=== PATIENT | male | born 1955 | race Caucasian/White ===

== ENCOUNTER 2019-04-28 09:42 | Emergency (ER) | payer OTHER ==
[2019-04-28] MEDS ORDERED: traMADol 50 MG Tab ONE (10:50)
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
--- NOTE | 2019-04-29 05:27 | CR ---
DATE OF SERVICE: 04/28/19 CLINICAL DATA: Right shoulder pain with injury. RIGHT SHOULDER: There is diffuse osteopenia. There are osteoarthritic changes of the AC and glenohumeral joints. No acute fracture or dislocation. No focal, lytic or blastic bone lesions. [id number] [facility]
== END 2019-04-28 10:54 | disposition home or self-care (01) ==
LOC: LB.ED 09:42
DX: S46.001A Unspecified injury of muscle(s) and tendon(s) of the rotator cuff of right shoulder, initial encounter (principal); V93.32XA Fall on board fishing boat, initial encounter
CPT/HCPCS: 73030; 99283; A9270